=== PATIENT | male | born 1950 | race African-American/Black ===

== ENCOUNTER 2025-02-27 09:38 | Emergency (ER) | payer OTHER, MEDICARE ==
[~2025-02-27] VITALS: Ht 165.1 cm; Wt 82.0 kg
[2025-02-27 09:41] VITALS: O2SAT 98
[2025-02-27 10:31] LABS: BASOPHILS % 0.4 % (0.0-2.0); EOSINOPHILS % 0.4 % (0.0-5.0); HEMATOCRIT. 41.1 % (42.0-52.0); HEMOGLOBIN. 13.8 g/dL (14.0-18.0); LYMPHOCYTES % 18.7 % (20.0-50.0); MEAN PLATELET VOLUME 8.3 fl (7.4-10.4); MONOCYTES % 8.1 % (2.0-8.0); NEUTROPHILS % 72.4 % (40.0-76.0); PLATELET 181 x1000/uL (130-400); RED BLOOD CELL COUNT 4.56 mill/uL (4.7-6.1); RED CELL DISTRIBUTION WIDTH 14.1 % (11.6-14.6)
[2025-02-27 10:42] LABS: CREATININE 1.3 mg/dL (0.6-1.3)
[2025-02-27 10:43] LABS: TROPONIN I HIGH SENSITIVITY < 4 ng/L (3.0-53); UREA NITROGEN BLOOD 15 mg/dL (9-23)
[2025-02-27 13:52] VITALS: BP 147/87; PULSE 82; RESP 17; TEMP 36.9; O2SAT 98
== END 2025-02-27 14:54 | disposition short-term general hospital (02) ==
LOC: ER 09:38 → EDBEDREQ 12:12 → EDBEDREQTM 12:12 → CANBEDREQ 14:25 → ER 14:54
DX: R55 Syncope and collapse (principal); I10 Essential (primary) hypertension
CPT/HCPCS: 36415; 71045; 80048; 84484; 85025; 93005; 99285